=== PATIENT | male | born 1970 ===

== ENCOUNTER 2021-02-27 08:44 | Emergency (ER) | payer MEDICARE, MEDICAID ==
[~2021-02-27] VITALS: Ht 180.3 cm; Wt 80.9 kg
--- NOTE | 2021-02-27 09:16 | NUR ---
PT UNABLE TO TELL ME IF HE HEARS VOICES, OR SEE'S THINGS. ADMITS TO TAKING METH A COUPLE DAYS AGO, AND DRINKS ALCOLHOL
[2021-02-27 09:55] LABS: BASOPHILS % (AUTO) 0.8 % (0-1); EOSINOPHILS % (AUTO) 0.6 % (0-6); HEMATOCRIT 42.8 % (42.0-52.0); HEMOGLOBIN 14.9 g/dl (14.0-17.9); LYMPHOCYTES # (AUTO) 1.2 X10'3 (1.1-4.8); LYMPHOCYTES % (AUTO) 23.1 % (21-51); MEAN CORPUSCULAR HEMOGLOBIN 34.8 PG (27.0-31.0); MEAN CORPUSCULAR HGB CONC 34.8 g/dL (33.0-36.5); MEAN CORPUSCULAR VOLUME 100.1 FL (78-98); MONOCYTES # (AUTO) 0.7 X10'3 (0-0.9); NEUTROPHILS # (AUTO) 3.2 X10'3 (1.8-7.7); NEUTROPHILS % (AUTO) 61.5 % (42-75); PLATELET COUNT 209 X10'3 (140-440); RED BLOOD COUNT 4.27 X10'6 (4.70-6.10); RED CELL DISTRIBUTION WIDTH 13.5 % (11.5-14.5); WHITE BLOOD COUNT 5.3 X10'3 (4.5-11.0)
[2021-02-27 10:20] LABS: ALANINE AMINOTRANSFERASE 547 U/L (12-78); ALBUMIN 3.5 G/DL (3.4-5.0); ALBUMIN/GLOBULIN RATIO 0.9 (1.1-1.5); ALKALINE PHOSPHATASE 85 IU/L (46-116); ANION GAP 9 (8-16); ASPARTATE AMINO TRANSFERASE 166 U/L (10-37); BILIRUBIN,TOTAL 0.9 MG/DL (0.1-1.0); BLOOD UREA NITROGEN 15 MG/DL (7-18); BUN/CREATININE RATIO 14.9 (5.4-32.0); CALCIUM 8.4 MG/DL (8.5-10.1); CHLORIDE 103 MMOL/L (99-107); CREATININE 1.01 MG/DL (0.60-1.10); ETHANOL < 0.010 GM/DL (0.0-0.010); GLUCOSE 97 MG/DL (70-104); POTASSIUM 3.6 MMOL/L (3.5-5.1); SODIUM 139 MMOL/L (135-145); TOTAL CARBON DIOXIDE 26.6 MMOL/L (24-32); TOTAL PROTEIN 7.5 G/DL (6.4-8.2); eGFR 79 ML/MIN
[2021-02-27 17:31] LABS: URINE AMPHETAMINE SCREEN POSITIVE (Neg); URINE BARBITUATE SCREEN NEGATIVE (Neg); URINE BENZODIAZEPINES SCREEN NEGATIVE (Neg); URINE CANNABINOID SCREEN POSITIVE (Neg); URINE COCAINE SCREEN NEGATIVE (Neg); URINE METHADONE SCREEN NEGATIVE (Neg); URINE OPIATE SCREEN NEGATIVE (Neg); URINE PHENCYCLIDINE SCREEN NEGATIVE (Neg)
--- NOTE | 2021-02-27 18:23 | NUR ---
Assumed care of patient- at this time he is resting in his bed quietly, even and unlabored respirations.
--- NOTE | 2021-02-27 18:44 | NUR ---
Patient states he takes HIV medications but is not sure of the name or dose of the medications.
[2021-02-27] MEDS ORDERED: ACYC400T PO (18:52)
[2021-02-27] MEDS ORDERED: ABAC1TAB14 PO (18:52)
[2021-02-27] MEDS ORDERED: HYDR-3972 PO (18:52)
--- NOTE | 2021-02-27 18:54 | NUR ---
spoke with patient's Pepper she can be reached at [phone], she was able to give a list of patient's medications. he states he takes them for HIV.
[2021-02-27] MEDS: acyclovir 200 MG capsule PO SCH (20:00)
--- NOTE | 2021-02-27 23:00 | NUR ---
The patient moved to bed 26 in the main ER. He was asking for food and stated he had not eaten 5 days. He stated that he believed people were following him and he felt fearful. Food items given.
--- NOTE | 2021-02-27 23:53 | NUR ---
The patient appears to be sleeping
--- NOTE | 2021-02-28 03:29 | NUR ---
The patient appears to be sleeping
--- NOTE | 2021-02-28 05:01 | NUR ---
The patient appears to be sleeping
--- NOTE | 2021-02-28 07:00 | NUR ---
Received pt asleep in bed. Pt resting peacefully in no apparent distress.
[2021-02-28] MEDS: ABACAVIR PO SCH (08:00)
[2021-02-28] MEDS: DOLUTEGRAVIR PO SCH (08:00)
[2021-02-28] MEDS: LAMIVUDI PO SCH (08:00)
[2021-02-28] MEDS: acyclovir 200 MG capsule PO SCH ×2 (08:05→20:34)
--- NOTE | 2021-02-28 08:59 | NUR ---
PACKET FAXED TO [facility]
--- NOTE | 2021-02-28 09:00 | NUR ---
Pt cooperative with am assessment and was up before breakfast requesting food and coffee. Pt provided coffee and when breakfast came, pt sat up and ate. Pt attempting to call people on telephone. Pt observed talking and cursing to himself. Pt currently denies S.I.
--- NOTE | 2021-02-28 09:19 | NUR ---
PT SSN: [id number]
--- NOTE | 2021-02-28 11:00 | NUR ---
Pt has been cooperative with assessment by [facility] and the business law instructor is upholding the 5150. Pt remains paranoid thinking "shadow people" are out to get him.
--- NOTE | 2021-02-28 11:04 | NUR ---
[facility]: Addendum: 02/28/21 at 1106 by MARY ELLENELSON [facility] will mail his HIV medications to where ever he is admitted.
--- NOTE | 2021-02-28 11:04 | NUR ---
Ledy case picker:
--- NOTE | 2021-02-28 13:00 | NUR ---
Pt lying in bed, making phone call on and off. Pt remains paranoid re: seeeing shadow people, but is cooperative here.
--- NOTE | 2021-02-28 15:00 | NUR ---
Pt on and off phone all afternoon. Pt remains restless and paranoid.
[2021-02-28] MEDS: HYDROcodone/acetaminophen 10/325mg tab PO PRN (15:37)
--- NOTE | 2021-02-28 17:00 | NUR ---
Pt laying in bed, talking to self. Pt calm without complaints.
--- NOTE | 2021-02-28 18:44 | NUR ---
Patient sitting on the side of bed eating Dinner meal.
--- NOTE | 2021-02-28 18:47 | NUR ---
Patient states that he feels fearful around other people right now, "not you per se", but just people in general." He says he can't understand why this is happening to him. "I have no idea why this happens to me."
--- NOTE | 2021-02-28 19:26 | NUR ---
The patient has been accepted to [facility] at [facility] today, in care of Dr. Ewing. RN will need to do nurse to nurse at [phone], before patient leaves between 0700 and 0800.
[2021-02-28] MEDS ORDERED: olanzapine 10mg tablet PO ONE (20:00)
--- NOTE | 2021-02-28 20:00 | NUR ---
The patient up to the nursing station reporting very high anxiety. Notified psychiatry PA and orders received.
--- NOTE | 2021-02-28 20:47 | NUR ---
The patient has had nighttime meds, and is lying down to sleep.
--- NOTE | 2021-02-28 23:18 | NUR ---
Patient appears to be sleeping. Breathing is even and unlabored. No s/s of distress.
--- NOTE | 2021-03-01 01:30 | NUR ---
Patient appears to be asleep. Resp. equal and unkabored. No signs of distress.
--- NOTE | 2021-03-01 04:49 | NUR ---
Patient asleep in the supine position. resp. equal and unlabored. No s/s of distress.
[2021-03-01 05:58] VITALS: BP 125/82
[2021-03-01] MEDS: LAMIVUDI PO SCH (08:00)
[2021-03-01] MEDS: ABACAVIR PO SCH (08:00)
[2021-03-01] MEDS: DOLUTEGRAVIR PO SCH (08:00)
[2021-03-01] MEDS: acyclovir 200 MG capsule PO SCH (08:12)
[2021-03-01] MEDS: HYDROcodone/acetaminophen 10/325mg tab PO PRN (08:16)
== END 2021-03-01 10:01 ==
LOC: ER 08:45
DX: R45.851 Suicidal ideations (principal); Z20.822 Contact with and (suspected) exposure to COVID-19; F15.90 Other stimulant use, unspecified, uncomplicated; F99 Mental disorder, not otherwise specified; R44.3 Hallucinations, unspecified; F17.200 Nicotine dependence, unspecified, uncomplicated; Z72.89 Other problems related to lifestyle; Z60.2 Problems related to living alone; Z59.0 Homelessness
CPT/HCPCS: 36415; 73650; 80053; 80305; 80320; 85025; 87635; 99285; C9803